=== PATIENT | female | born 1945 ===

== ENCOUNTER 2019-08-12 12:44 | Outpatient (REF) | payer OTHER, SELFPAY ==
[2019-08-12 21:39] LABS: Abs Immature Grans 0.05 k/cumm (0.0-0.09); Absolute Basophil Count 0.05 k/cumm (0.0-0.2); Absolute Eosinophil Count 0.12 k/cumm (0.0-0.7); Absolute Lymphocyte Count 1.86 k/cumm (1.2-3.4); Absolute Monocyte Count 0.72 k/cumm (0.11-0.7); Absolute Neutrophil Count 5.47 k/cumm (1.2-6.7); Basophils % 0.6; Eosinophils % 1.5; HCT 42.6 % (36.0-46.0); Immature Grans % 0.6 %; Lymphocytes % 22.5; Mean Corp. HGB Concentration 32.9 g/dL (32.0-36.0); Mean Corpuscular Hemoglobin 29.9 pg (27.0-33.0); Mean Platelet Volume 9.6 fL (8.0-11.0); Monocytes % 8.7; Neutrophils % 66.1; Platelet Count 275 x1000/uL (130-400); RBC 4.68 m/cumm (4.00-5.20); RBC Distribution Width 17.3 % (11.7-14.6); White Blood Cell Count 8.27 k/cumm (4.4-10.8)
[2019-08-12 22:00] LABS: Hemoglobin A1C 6.7 % (3.8-5.6)
[2019-08-12 22:16] LABS: ALT 30 U/L (14-59); AST 33 U/L (15-37); Albumin 3.6 g/dL (3.4-5.0); Alkaline Phosphatase 59 U/L (46-116); Anion Gap 7.8 mmol/L (3-11); BUN 21 mg/dL (7-18); Bilirubin, Total 0.9 mg/dL (0.2-1.0); CO2 33.2 mmol/L (21.0-32.0); CREATININE 0.79 mg/dL (0.55-1.02); Calcium 9.2 mg/dL (8.5-10.1); Calculated LDL 233 mg/dL (<100); Chloride 98 mmol/L (98-107); Cholesterol 338 mg/dL (<200); Glucose 85 mg/dL (74-106); HDL Cholesterol 69 mg/dL (40-60); Potassium 4.1 mmol/L (3.5-5.1); Sodium 139 mmol/L (136-145); TSH 12.39 uIU/mL (0.36-3.74); Total Protein 7.1 g/dL (6.4-8.2); Triglyceride 182 mg/dL (<150); Vitamin B12 593 pg/mL (193-986)
[2019-08-13 05:05] LABS: Vitamin D 25 Total 21.5 ng/ml (30-100)
== END 2019-08-12 13:04 ==
LOC: NCHCN 12:44
PROVIDERS: PCP Nurse Practitioner Community Health; Visit Provider Nurse Practitioner Community Health
DX: I48.91 Unspecified atrial fibrillation (principal); I50.22 Chronic systolic (congestive) heart failure; E78.89 Other lipoprotein metabolism disorders; E55.9 Vitamin D deficiency, unspecified; R73.09 Other abnormal glucose; K76.89 Other specified diseases of liver
CPT/HCPCS: 80053; 80061; 82306; 82607; 83036; 83735; 84443; 85025

== ENCOUNTER 2020-02-17 20:08 | Outpatient (REF) | payer OTHER, SELFPAY ==
[2020-02-18 04:52] LABS: Vitamin D 25 Total 33.8 ng/ml (30-100)
== END 2020-02-17 20:28 ==
LOC: NCHCN 20:08
PROVIDERS: PCP Nurse Practitioner Community Health; Visit Provider Nurse Practitioner Community Health
DX: E55.9 Vitamin D deficiency, unspecified (principal)
CPT/HCPCS: 82306

== ENCOUNTER 2020-03-17 10:33 | Outpatient (REF) | payer OTHER, SELFPAY ==
[2020-03-17 20:52] LABS: HCT 43.6 % (36.0-46.0); HGB 13.9 g/dL (11.2-15.7); MCH 31.5 pg (27.0-33.0); MCHC 31.9 % (32.0-36.0); MCV 98.9 fL (80-95); MPV 10.4 fL (8.0-11.0); Platelet Count 262 10^3/uL (130-400); RBC 4.41 10^6/uL (3.93-5.22); RDW 13.2 % (11.7-14.6); RDW-SD 48.1 fL; WBC 9.37 10^3/uL (4.4-10.8)
[2020-03-17 21:26] LABS: ALT 58 U/L (14-59); AST 52 U/L (15-37); Albumin 3.7 g/dL (3.4-5.0); Alkaline Phosphatase 66 U/L (46-116); Anion Gap 9.9 mmol/L (3-11); BUN 18 mg/dL (7-18); Bilirubin, Total 0.8 mg/dL (0.2-1.0); CO2 31.1 mmol/L (21.0-32.0); CREATININE 0.76 mg/dL (0.55-1.02); Calcium 9.4 mg/dL (8.5-10.1); Chloride 101 mmol/L (98-107); Glucose 102 mg/dL (74-106); Potassium 3.2 mmol/L (3.5-5.1); Sodium 142 mmol/L (136-145); TSH (W/Ref FT4) 5.14 uIU/mL (0.36-3.74); Total Protein 7.1 g/dL (6.4-8.2)
[2020-03-17 21:36] LABS: Hemoglobin A1C 5.4 % (<5.7)
[2020-03-17 22:00] LABS: FREE T4 1.07 ng/dL (0.76-1.46)
== END 2020-03-17 10:53 ==
LOC: NCHCN 10:33
PROVIDERS: PCP Nurse Practitioner Community Health; Visit Provider Nurse Practitioner Community Health
DX: R73.03 Prediabetes (principal); R63.4 Abnormal weight loss; M06.9 Rheumatoid arthritis, unspecified
CPT/HCPCS: 80053; 85027; 83036; 84439; 84443

== ENCOUNTER 2020-06-07 20:05 | Outpatient (REF) | payer OTHER, SELFPAY ==
[2020-06-07 22:19] LABS: Hemoglobin A1C 5.4 % (<5.7)
[2020-06-07 22:23] LABS: Anion Gap 2.7 mmol/L (3-11); BUN 25 mg/dL (7-18); CO2 34.3 mmol/L (21.0-32.0); CREATININE 0.84 mg/dL (0.55-1.02); Calcium 9.6 mg/dL (8.5-10.1); Chloride 102 mmol/L (98-107); Glucose 94 mg/dL (74-106); Potassium 3.8 mmol/L (3.5-5.1); Sodium 139 mmol/L (136-145); TSH (W/Ref FT4) 6.14 uIU/mL (0.36-3.74)
[2020-06-07 22:41] LABS: FREE T4 1.06 ng/dL (0.76-1.46)
== END 2020-06-07 20:25 ==
LOC: NCHCN 20:05
PROVIDERS: PCP Nurse Practitioner Community Health; Visit Provider Nurse Practitioner Family
DX: R73.03 Prediabetes (principal); R63.4 Abnormal weight loss; E03.9 Hypothyroidism, unspecified
CPT/HCPCS: 80048; 83036; 84439; 84443

== ENCOUNTER 2020-06-15 18:21 | Outpatient (REF) | payer OTHER, SELFPAY ==
[2020-06-15 22:01] LABS: Bilirubin Negative (Negative); Blood Negative (Negative); Clarity Sl Cloudy (Clear); Glucose Negative (Negative); Ketones Negative (Negative); Leukocyte Esterase Negative (Negative); Nitrite Negative (Negative); Specific Gravity 1.025 (1.005-1.025); Urobilinogen 0.2 EU/dL (Up TO 0.2); pH 5.5 (5-8)
== END 2020-06-15 18:41 ==
LOC: NCHCN 18:21
PROVIDERS: PCP Nurse Practitioner Community Health; Visit Provider Registered Nurse
DX: R35.0 Frequency of micturition (principal)
CPT/HCPCS: 81003